=== PATIENT | male | born 1955 | race Caucasian/White ===

== ENCOUNTER → 2020-06-08 | Day surgery (SDC) | payer MEDICARE, OTHER ==
[~2020-06-08] VITALS: Ht 185.4 cm; Wt 117.9 kg
[~2020-06-08] MED LIST: ACTOS30 MG PO; ALDACTONE50 MG PO; CRESTOR10 MG PO; FENOFIBRATE200 MG PO; GLUCOPHAGE850 MG PO; LISINOPRIL40 MG PO; TOPROL XL 50 MG50 MG PO
== END | disposition home or self-care (01) ==
LOC: FAS 08:30
DX: K57.30 Diverticulosis of large intestine without perforation or abscess without bleeding (principal); K62.1 Rectal polyp; K64.4 Residual hemorrhoidal skin tags; I10 Essential (primary) hypertension; E78.5 Hyperlipidemia, unspecified; E66.01 Morbid (severe) obesity due to excess calories; E11.65 Type 2 diabetes mellitus with hyperglycemia; Z68.39 Body mass index [BMI] 39.0-39.9, adult; Z88.8 Allergy status to other drugs, medicaments and biological substances; Z79.84 Long term (current) use of oral hypoglycemic drugs; Z82.49 Family history of ischemic heart disease and other diseases of the circulatory system; Z83.3 Family history of diabetes mellitus
CPT/HCPCS: 88305; 88341; 88342; J2704; J7120